=== PATIENT | female | born 1970 | race Caucasian/White ===

== ENCOUNTER 2018-06-02 00:02 | Emergency (ER) | payer OTHER ==
[2018-06-02] MEDS ORDERED: NORMAL SALINE 1000 ML 1,000 ML IV ONE (00:49)
[2018-06-02] MEDS ORDERED: KETOROLAC TROMETHAMINE INJ/PF 30 MG/1 ML SDV IV ONE (00:49)
[2018-06-02] MEDS ORDERED: METHOCARBAMOL INJ/PF 1000 MG/10 ML SDV IV ONE (00:49)
[2018-06-02] MEDS ORDERED: METOCLOPRAMIDE HCL INJ/PF 10 MG/2 ML SDV IV ONE (00:49)
--- NOTE | 2018-06-02 00:52 | ER Document Report ---
ED Headache - General Chief Complaint: Headache Stated Complaint: HEADACHE Time Seen by Provider: 06/02/18 00:39 Notes: Patient is a 48 year old female that comes to the ED for chief complaint of a headache for the past 3 days. Headache started mild, has progressively worsened , and now she reports a throbbing and shooting pain behind her left eye, nausea , and photophobia. She also reports some pain along the left side of her neck. She denies trauma, fever, focal numbness or weakness. She reports a history of migraines, used to require treatment of it, has had imaging of her head in the past including MRI. She is new to the area. TRAVEL OUTSIDE OF THE [place] IN LAST 30 DAYS: No - Related Data Allergies/Adverse Reactions: Tetracyclines Allergy (Verified 06/02/18 00:29) Past Medical History - General Information source: Patient - Social History Smoking Status: Unknown if Ever Smoked Lives with: Family Family History: Reviewed & Not Pertinent Patient has suicidal ideation: No Patient has homicidal ideation: No Neurological Medical History: Reports: Hx Migraine Renal/ Medical History: Denies: Hx Peritoneal Dialysis Surgical Hx: Negative - Immunizations Hx Diphtheria, Pertussis, Tetanus Vaccination: Yes Review of Systems - Review of Systems Constitutional: No symptoms reported EENT: No symptoms reported Cardiovascular: No symptoms reported Respiratory: No symptoms reported Gastrointestinal: No symptoms reported Genitourinary: No symptoms reported Female Genitourinary: No symptoms reported Musculoskeletal: No symptoms reported Skin: No symptoms reported Hematologic/Lymphatic: No symptoms reported Neurological/Psychological: See HPI Physical Exam - Vital signs Vitals: Temp Pulse Resp BP Pulse Ox 97.9 F 73 16 133/65 H 95 06/02/18 00:27 06/02/18 00:27 06/02/18 00:27 06/02/18 00:27 06/02/18 00:27 - Notes Notes: GENERAL: Alert, interacts well. No acute distress except for mild photophobia. HEAD: Normocephalic, atraumatic. EYES: Pupils equal, round, and reactive to light. Extraocular movements intact. ENT: Oral mucosa moist, tongue midline. Oropharynx unremarkable. Airway patent. Nares patent, no nasal septal hematoma, TM's intact. NECK: Full range of motion. Supple. Trachea midline. LUNGS: Clear to auscultation bilaterally, no wheezes, rales, or rhonchi. No respiratory distress. HEART: Regular rate and rhythm. No murmur ABDOMEN: Soft, non-tender. Non-distended. Bowel sounds present in all 4 quadrants. GENITOURINARY: Deferred EXTREMITIES: Moves all 4 extremities spontaneously. No edema, normal radial and dorsalis pedis pulses bilaterally. No cyanosis. BACK: no cervical, thoracic, lumbar midline tenderness. There is tenderness along the left paracervical musculature but full range of motion is intact. No saddle anesthesia, normal distal neurovascular exam. NEUROLOGICAL: Alert and oriented x3. Normal speech. [cranial nerves II through XII grossly intact]. PSYCH: Normal affect, normal mood. SKIN: Warm, dry, normal turgor. No rashes or lesions noted. Course - Re-evaluation Re-evalutation: Patient is well-appearing except for mild photophobia. There is some paracervical tenderness on the left side with left-sided headache that progressed into a migraine-like symptoms. No maximal onset headache, this is not a patient with headache ever, she denies severe headache at this time. She has intermittent nausea, intermittent throbbing headache behind the left eye. Normal neurological exam. Low suspicion of subarachnoid hemorrhage, intracranial hemorrhage, meningitis, venous sinus thrombosis based on her description and evaluation. Patient given Toradol, Robaxin, and Reglan. On reevaluation patient's headache completely resolved. Patient very grateful, states she is ready to go home. Discussed treatment, treatment of tension headaches in her neck, follow-up and return precautions in detail. Patient states she will be following up with a local primary care, states agreement with plan. - Vital Signs Vital signs: Temp Pulse Resp BP Pulse Ox 98.5 F 65 16 116/73 95 06/02/18 03:00 06/02/18 03:00 06/02/18 03:00 06/02/18 03:00 06/02/18 03:00 Discharge - Discharge Clinical Impression: Headache Qualifiers: Headache type: unspecified Headache chronicity pattern: unspecified pattern Intractability: not intractable Qualified Code(s): R51 - Headache Condition: Stable Disposition: HOME, SELF-CARE Additional Instructions: Your evaluation, symptoms, and response to treatment are most consistent with a tension headache and secondary migraine. Take Robaxin muscle relaxer if needed, you can apply heat and do gentle stretches to your neck as well. Take Tylenol or ibuprofen for headache, if needed you can take the Fioricet instead. Follow-up with primary care for additional evaluation and management. Return if you worsen including severe headache, vomiting, or any other concerning symptoms. Prescriptions: Butalb/Acetaminophen/Caffeine [Fioricet (50-325-40 mg) Tablet] 1 tab PO Q4HP PRN #30 tab PRN Reason: Methocarbamol [Robaxin 500 mg Tablet] 500 mg PO QID PRN #20 tablet PRN Reason:
[2018-06-02 03:02] VITALS: BP 116/73
== END 2018-06-02 03:02 | disposition home or self-care (01) ==
LOC: ER 00:02
DX: R51 Headache (principal); R11.0 Nausea; H53.149 Visual discomfort, unspecified; M54.2 Cervicalgia; Z86.69 Personal history of other diseases of the nervous system and sense organs; Z88.1 Allergy status to other antibiotic agents
CPT/HCPCS: J2800; J1885; J2765; J7030

== ENCOUNTER 2018-06-02 13:44 | Emergency (ER) | payer SELFPAY ==
[2018-06-02 13:59] VITALS: BP 145/75
[2018-06-02] MEDS ORDERED: KETOROLAC TROMETHAMINE 60 MG/2 ML SDV IM ONE (14:29)
[2018-06-02] MEDS ORDERED: METHYLPREDNISOLONE ACETATE INJ 80 MG/1 ML VIAL IM ONE (14:29)
--- NOTE | 2018-06-02 15:04 | ER Document Report ---
ED Headache - General Chief Complaint: Headache Stated Complaint: HEADACHE Time Seen by Provider: 06/02/18 14:22 Mode of Arrival: Ambulatory Information source: Patient Notes: History of Present Illness Chief Complaint: [headache] [ ] History obtained from [patient] 48 years old female returns again today with a persistent headache. She was treated early this morning and discharged home. She went home slept when she woke up the pain was again severe as it was therefore present to the ED. Having left-sided neck pain and left-sided headache. No nausea vomiting or other constitutional symptoms. Had slight sore throat. Symptoms began: [today] Onset: [gradual] Timing: [constant] Quality: ["pain"] No different than prior severe headaches Intensity: [severe, but not worst ever] Location: [frontal] Aggravating factors: [none] Relieving factors: [none] Denies neck pain or stiffness Denies rash Denies visual loss or eye pain. Denies tick bite Denies head injury Denies weakness, numbness, incontinence, seizure, LOC Review of systems : All other systems negative as reviewed. CONSTITUTIONAL No fever. EYES No eye pain. ENT No URI symptoms, No sore throat, No ear pain. CARDIOVASCULAR No chest pain, No palpitations, No edema. RESPIRATORY No Cough, No SOB, No wheezing. GASTROINTESTINAL No abdominal pain, No nausea, No vomiting, No diarrhea, No constipation, No melena, No rectal bleeding. GENITOURINARY No UTI symptoms. MUSCULOSKELETAL No back pain. SKIN No Rash. NEUROLOGIC No paralysis, No parathesias. ENDOCRINE No polyuria. HEMO/LYMPATIC Patient does not bruise easily. PSYCHIATRIC No depression. Physical Exam CONSTITUTIONAL Vital signs reviewed, Comfortable, Alert and oriented X 3. HEAD Atraumatic, Normal cephalic. EYES No discharge from eye, Sclera are not injected, Extraocular muscles intact, Conjunctiva are normal.perrl,2mm, no photophobia, no nystagmus, fundi wnl. ENT Ears normal to inspection, Nose examination normal, Oropharynx normal, Mucous membranes pink, moist, normal in color. NECK Examination of the paraspinal muscles of the left side of the neck is sharply tender on palpation particularly at the insertion to the scalp. Normal inspection, supple, Normal ROM, No jugular venous distention, No meningeal signs, no carotid bruit or tenderness. RESPIRATORY/CHEST Chest is non-tender, Breath sounds normal, No respiratory distress. CARDIOVASCULAR RRR, Heart sounds normal. ABDOMEN Abdomen is non-tender, No masses, Bowel sounds normal, No distension, No peritoneal signs. BACK Normal inspection. UPPER EXTREMITY Inspection normal, No cyanosis/clubbing/edema. LOWER EXTREMITY Inspection normal, No cyanosis/clubbing/edema, No calf tenderness. NEURO cn intact, no astreixis, no pronator drift, finger to nose testing coordinated bilaterally, 1+ deep tendon reflexes x 4 ext, down going babinski bilaterally , normal speech, Motor exam normal, Sensory exam normal. SKIN Skin is warm and dry, No rash. LYMPHATIC No adenopathy in neck. PSYCHIATRIC Normal affect. TRAVEL OUTSIDE OF THE [place] IN LAST 30 DAYS: No - HPI Notes: Dictated - Related Data Allergies/Adverse Reactions: Tetracyclines Allergy (Verified 06/02/18 13:46) Past Medical History - Social History Smoking Status: Never Smoker Chew tobacco use (# tins/day): No Frequency of alcohol use: None Drug Abuse: None Lives with: Family Family History: Reviewed & Not Pertinent Patient has suicidal ideation: No Patient has homicidal ideation: No Neurological Medical History: Reports: Hx Migraine Renal/ Medical History: Denies: Hx Peritoneal Dialysis - Immunizations Hx Diphtheria, Pertussis, Tetanus Vaccination: Yes Review of Systems - Review of Systems Notes: Dictated Physical Exam - Vital signs Vitals: Temp Pulse Resp BP Pulse Ox 99.4 F 74 14 145/75 H 98 06/02/18 13:58 06/02/18 13:58 06/02/18 13:58 06/02/18 13:58 06/02/18 13:58 - Notes Notes: Dictated Course - Re-evaluation Re-evalutation: 06/02/18 15:01 Headache was relieved after the point injection - Vital Signs Vital signs: Temp Pulse Resp BP Pulse Ox 99.4 F 74 14 145/75 H 98 06/02/18 13:58 06/02/18 13:58 06/02/18 13:58 06/02/18 13:58 06/02/18 13:58 Procedures - Additional Procedures Trigger point injection Time performed: 15:00 Notes: 06/02/18 15:02 Under aseptic condition using sterile technique after cleaning with alcohol 80 mg of Depo-Medrol, 60 mg of Toradol, 3 cc of Marcaine was mixed together and injected over the left upper paraspinal muscles without any complications. Patient tolerated the procedure well postprocedure headache was completely relieved. Discharge - Discharge Clinical Impression: Myalgia Headache Qualifiers: Headache type: tension-type Headache chronicity pattern: acute headache Intractability: not intractable Qualified Code(s): G44.209 - Tension-type headache, unspecified, not intractable Acute cervical sprain Qualifiers: Encounter type: initial encounter Qualified Code(s): S13.9XXA - Sprain of joints and ligaments of unspecified parts of neck, initial encounter Condition: Fair Disposition: HOME, SELF-CARE Instructions: Headache ([facility])
== END 2018-06-02 15:08 | disposition home or self-care (01) ==
LOC: ER 13:44
DX: G44.209 Tension-type headache, unspecified, not intractable (principal); M54.2 Cervicalgia; J02.9 Acute pharyngitis, unspecified; Z88.1 Allergy status to other antibiotic agents; Z86.69 Personal history of other diseases of the nervous system and sense organs
CPT/HCPCS: 99284; 20552; J1885; J1040

== ENCOUNTER 2018-06-02 22:16 | Emergency (ER) | payer SELFPAY ==
[2018-06-02] MEDS ORDERED: TETRACAINE HCL 0.5% OPH SOLN 4 ML OS ONE (23:57)
--- NOTE | 2018-06-03 00:03 | ER Document Report ---
ED Headache - General Mode of Arrival: Ambulatory Information source: Patient TRAVEL OUTSIDE OF THE [place] IN LAST 30 DAYS: No - General Chief Complaint: Headache Stated Complaint: HEADACHE Time Seen by Provider: 06/02/18 23:37 Notes: Patient is a 48 year old female with a history of migraines presents to the emergency department complaining of a headache onset 3 days ago. Patient states her headache worsened 2 days ago and is primarily located behind her left eye further stating the pain is exacerbated with eye movements. She states her normal migraines are located globally and do not normally last as long. Patient has been seen and discharged from this ED 2 other times in 24 hours complaining of identical symptoms. She states while in the hospital the medications she was giving only decreased her pain and the prescriptions she was given did not help further stating she took 2 doses of her prescribed medications. Patient also complains of nausea, photosensitivity,blurry vision and numbness in her fingers. She denies any vomiting or diarrhea. Review of records show the patient received Toradaol and Reglan during visit and was discharged with Fioricet. She also received a trigger shot including lidocaine and depo-medrol. (JEFFREY TRISTAN) - Related Data Allergies/Adverse Reactions: Tetracyclines Allergy (Verified 06/02/18 13:46) Past Medical History - General Information source: Patient - Social History Smoking Status: Never Smoker Cigarette use (# per day): No Chew tobacco use (# tins/day): No Smoking Education Provided: No Frequency of alcohol use: None Family History: Reviewed & Not Pertinent Patient has suicidal ideation: No Patient has homicidal ideation: No Neurological Medical History: Reports: Hx Migraine - Immunizations Hx Diphtheria, Pertussis, Tetanus Vaccination: Yes Review of Systems - Review of Systems Constitutional: No symptoms reported EENT: See HPI Cardiovascular: No symptoms reported Respiratory: No symptoms reported Gastrointestinal: See HPI Genitourinary: No symptoms reported Female Genitourinary: No symptoms reported Musculoskeletal: No symptoms reported Skin: No symptoms reported Hematologic/Lymphatic: No symptoms reported Neurological/Psychological: See HPI, Headaches -: Yes All other systems reviewed and negative Physical Exam - Vital signs Vitals: Temp Pulse Resp BP Pulse Ox 98.5 F 74 18 139/70 H 96 06/02/18 22:24 06/02/18 22:24 06/02/18 22:24 06/02/18 22:24 06/02/18 22:24 - Notes Notes: GENERAL: Alert, interacts well. No acute distress. HEAD: Normocephalic, atraumatic. No enlarged temporal artery bilaterally. Not tender to palpation to the temples bilaterally. Tenderness to palpation to the V1 distribution along the left side. EYES: Pupils equal, round, and reactive to light. Extraocular movements intact. Good red reflexes. Right intraocular pressure: 18.5, Left intraocular pressure : 15.5. No signs of inflammation in the anterior chamber. No cell and flare in the anterior chamber. ENT: Oral mucosa moist, tongue midline. Nares patent, no nasal septal hematoma, TM's intacts. NECK: Full range of motion. Supple. Trachea midline. No signs of infection or swelling at site of trigger injection. LUNGS: Clear to auscultation bilaterally, no wheezes, rales, or rhonchi. No respiratory distress. HEART: Regular rate and rhythm. No murmurs, gallops, or rubs. ABDOMEN: Soft, non-tender. Non-distended. Bowel sounds present in all 4 quadrants. EXTREMITIES: Moves all 4 extremities spontaneously. No edema, radial and dorsalis pedis pulses 2/4 bilaterally. No cyanosis. NEUROLOGICAL: Alert and oriented x3. Normal speech. Cranial nerves II through XII grossly intact. Biceps and patellar DTRs 2+ bilaterally. PSYCH: Normal affect, normal mood. SKIN: Warm, dry, normal turgor. No rashes or lesions noted. (JEFFREY TRISTAN) Fundoscopic exam was performed, limited view was obtained, no obvious swelling of the optic nerve. good venous pulsations. (DAVI MEZA) Course - Re-evaluation Re-evalutation: 06/03/18 02:22 Slit-lamp examination did not reveal any evidence of inflammation in the anterior chamber, no cell and flare, there is no decrease in visual acuity, no visual field deficits, no difficulty with extraocular movements though they do cause pain, no evidence of infection, no increased intraocular pressure, no proptosis. Given her completely intact neurologic exam I find it very doubtful that there are any masses directly behind the eye pushing on the eye causing significant pain. Discussed with patient that her exam is not consistent with just 1 because of pain, her pain with extraocular movement could be from a retrobulbar optic neuritis however this should not cause pain along the V1 distribution of her face, it could also come from trigeminal neuralgia however this should not cause pain with extraocular movements. I did discuss with the patient that is very important that she follow-up with ophthalmology later today , given the patient's photophobia we will patch the left eye simply to block the light. Both trigeminal neuralgia and retrobulbar optic neuritis can be relieved by gabapentin so I did treat her with gabapentin and Percocet, patient' s pain was initially a 5, then she told the nurse that her pain had not been relieved to 20 minutes after she received her pain medication, shortly after that point the patient said her pain was down to 2, after I just checked on her about an hour and a half after that the patient said that her pain had been significantly improved and it was now down to a 3. This is somewhat inconsistent as her pain was previously a 2 however she appears quite comfortable at this time. I do not see any vision threatening etiology at this time and patient will be discharged home and asked to follow-up with ophthalmology in the morning. 06/03/18 02:27 (DAVI MEZA) - Vital Signs Vital signs: Temp Pulse Resp BP Pulse Ox 98.5 F 65 16 122/69 95 06/03/18 02:39 06/03/18 02:39 06/03/18 02:39 06/03/18 02:39 06/03/18 02:39 Discharge - Discharge Clinical Impression: Acute left eye pain Condition: Stable Disposition: HOME, SELF-CARE Additional Instructions: I am not entirely certain what is causing your left eye pain. The pain with movement of your eye could be coming from retrobulbar optic neuritis. The pain along the right side of your head could be coming from trigeminal neuralgia. Tonight you did not have any increased pressure in your eye, you did not have any in signs of infection and your vision was 20/25 in your left eye, 20/40 in the right eye and 20/20 when looking with both eyes. I have started you on gabapentin, this medication is known to improve pain from both trigeminal neuralgia and retrobulbar optic neuritis. Given the pain with eye movements it is very important that you follow-up with ophthalmology first thing in the morning. Please call their office to arrange a follow-up appointment first thing in the morning. Please use the gabapentin twice a day for the next 2 days then you may increase to 3 times a day. Prescriptions: Gabapentin 300 mg PO TID #30 capsule Forms: Return to Work Referrals: MICHAEL ACOSTA DO [ACTIVE STAFF] - 06/03/18 Scribe Attestation: 06/03/18 03:14 I personally performed the services described in the documentation, reviewed and edited the documentation which was dictated to the scribe in my presence, and it accurately records my words and actions. (DAVI MEZA) Scribe Documentation - Scribe Written by Devan:: Devan Bernal, 06/03/2018 00:07 acting as scribe for :: Jesus
[2018-06-03] MEDS ORDERED: GABAPENTIN 300 MG CAPSULE PO ONE (00:40)
[2018-06-03] MEDS ORDERED: OXYCODONE-ACETAMINOPHEN 5-325 MG TABLET PO ONE (00:42)
[2018-06-03 02:40] VITALS: BP 122/69
== END 2018-06-03 02:40 | disposition home or self-care (01) ==
LOC: ER 22:16
DX: H57.12 Ocular pain, left eye (principal); R11.0 Nausea; H53.149 Visual discomfort, unspecified; H53.8 Other visual disturbances; R20.0 Anesthesia of skin; Z86.69 Personal history of other diseases of the nervous system and sense organs; Z88.1 Allergy status to other antibiotic agents
CPT/HCPCS: 99284; J3490